=== PATIENT | female | born 2000 | race African-American/Black ===

== ENCOUNTER 2020-10-20 14:44 | Emergency (ER) | payer OTHER ==
[2020-10-20 15:15] VITALS: BP 106/68; PULSE 84; TEMP 97.8; BMI 20.5
[2020-10-20] MEDS ORDERED: ACETAMINOPHEN 500 MG TABLET (FP) PO ONE (15:54)
[2020-10-20] MEDS ORDERED: ACETAMINOPHEN 500 MG TABLET (FP) ONE (16:31)
== END 2020-10-20 19:45 | disposition home or self-care (01) ==
LOC: JERFT 14:44
DX: G89.11 Acute pain due to trauma (principal)
CPT/HCPCS: 70450-TC; 71260-TC; 72125-TC; 74177-TC; 84703; 93005; 93010; 99285-25; Q9967